=== PATIENT | male | born 1945 | race Caucasian/White ===

== ENCOUNTER 2018-05-16 05:44 | Inpatient (IN) ==
[2018-05-16] MEDS ORDERED: Zolpidem Tartrate 5 MG Tablet PO PRN (06:39)
[2018-05-16] MEDS ORDERED: Post-op Orders (for Pharmacy) OTHER STA (06:39)
[2018-05-16] MEDS ORDERED: Dexamethasone Inj 20 MG/5 ML Vial IV.PUSH PRN (06:47)
[2018-05-16] MEDS ORDERED: TRANEXAMIC ACID IV.SIG SCH (07:00)
[2018-05-16] MEDS ORDERED: SODIUM CHLOR 0.9% IV.SIG SCH (07:00)
[2018-05-16] MEDS ORDERED: Vancomycin Inj 1,000 MG in Sodium Chlor 0.9% Inj 250 ML IV.SIG SCH (07:00)
[2018-05-16] MEDS ORDERED: Chlorhexidine 4% Topical 120 APPLIC/120 ML Bottle TOPICAL SCH (07:00)
[2018-05-16] MEDS ORDERED: Sodium Chlor 0.9% Inj 73.07 ML, Ropivacaine 0.5% PF Inj 24.63 ML, Ketorolac Inj 30 MG, ... P-ARTICULR SCH ×5 (07:00)
[2018-05-16] MEDS ORDERED: Chlorhexidine Gluconate 2% 1 Pack (2 Cloths) TOPICAL ONE ×2 (07:01→07:12)
[2018-05-16] MEDS ORDERED: Metoprolol Tartrate 25 MG Tablet PO ONE (07:12)
[2018-05-16] MEDS ORDERED: Bupivacaine Liposomal PF 1.3% Inj 20 ML Vial ONE (07:52)
[2018-05-16] MEDS ORDERED: Sodium Chlor 0.9% Inj 500 ML IV.SIG SCH ×2 (08:00)
[2018-05-16] MEDS ORDERED: HYDROmorphone PF Inj 2 MG/ML Vial IV.PUSH PRN (08:15)
[2018-05-16] MEDS: ceFAZolin 2 GM Premix Inj 2 GM/50 ML PIGGYBACK IV.SIG SCH ×3 (08:31→21:20)
[2018-05-16] MEDS ORDERED: Lidocaine PF 1% Inj 5 ML Syringe OTHER ONE (08:45)
[2018-05-16] MEDS ORDERED: Glycopyrrolate Inj 1 MG/5 ML Syringe IV.PUSH ONE (08:45)
[2018-05-16] MEDS ORDERED: Phenylephrine/NS 1000 MCG/10ML Syringe IV.PUSH ONE (08:45)
[2018-05-16] MEDS ORDERED: Neostigmine Inj 5 MG/5 ML Syringe IV.PUSH ONE (08:45)
[2018-05-16] MEDS ORDERED: Tranexamic Acid Inj 3,000 MG in Sodium Chlor 0.9% Inj 100 ML P-ARTICULR SCH (09:50)
[2018-05-16] MEDS ORDERED: *morphine SULFATE 10 MG/ML PERIprocedure ONLY ONE (11:26)
[2018-05-16] MEDS ORDERED: *Meperidine Inj 25 MG/ML Vial PERIprocedural Use ONLY ONE (11:39)
[2018-05-16] MEDS ORDERED: Morphine Inj 4 MG/ML Vial ONE (11:45)
[2018-05-16] MEDS ORDERED: fentaNYL Citrate Inj 100 MCG/2 ML Ampul ONE (11:45)
--- NOTE | 2018-05-16 12:19 | XR ---
EXAM DATE: 05/16/2018 12:17 PM EDT AGE/SEX: 72 years / Male INDICATIONS: Post op left knee. CLINICAL DATA: This is the patient's initial encounter. Patient reports that signs and symptoms have been present for 1 day and indicates a pain score of Nonresponsive. MEDICAL/SURGICAL HISTORY: None. None. COMPARISON: No prior exams available for comparison. FINDINGS: The patient's had a total knee arthroplasty. There is no complications. There is excellent alignment. CONCLUSION: Status post total knee arthroplasty without complication Electronically signed by: Jeb Torres MD 05/16/2018 12:18 PM EDT
[2018-05-16] MEDS: Gabapentin 300 MG Capsule PO SCH ×2 (14:18→21:22)
[2018-05-16] MEDS: Senna/Docusate Sodium 8.6/50 MG Tablet PO SCH ×2 (14:21→21:21)
[2018-05-16] MEDS: Multivitamin/Minerals Therapeutic Tablet PO SCH ×2 (14:21→21:22)
--- NOTE | 2018-05-16 14:22 | MP ---
cc: Jose Rafael Maldonado MD DATE OF OPERATION: 05/16/2018 DATE OF PROCEDURE: 05/16/2018. PREOPERATIVE DIAGNOSIS: Left knee osteoarthritis. POSTOPERATIVE DIAGNOSIS: Left knee osteoarthritis. PROCEDURE PERFORMED: Left total knee arthroplasty. SURGEON: Jose Rafael Maldonado MD PHOTONIC LABORATORY TECHNICIAN: PATRICIA Mascorro. ANESTHESIA: General with femoral nerve block. ESTIMATED BLOOD LOSS: 100 mL TOURNIQUET TIME: 37 minutes at 250 mmHg. COMPLICATIONS: None. IMPLANTS USED: DePuy Attune size 8 posterior stabilized femoral component, size 8 rotating platform tibial baseplate, size 6 mm polyethylene tibial insert and size 38 patella. INDICATIONS: This patient is a 72-year-old male with history of severe osteoarthritis involving the left knee. He has severe disabling pain with standing, walking, ambulation. Weightbearing activities and severe pain at rest. The pain does interfere with activities of daily living. He has failed greater than 3 months of nonoperative conservative treatment to include medication therapy, injections, ambulatory assist aids, home exercise program, activity modification, weight loss attempts. X-rays of the left knee reveal severe osteoarthritis with joint space narrowing, subchondral sclerosis, subchondral cyst, osteophyte formation with deformity and subluxation. The patient was counseled as to the risks, benefits and alternatives to a total knee arthroplasty. The risks were discussed included, but not limited to anesthesia, bleeding, infection, damage to nerves and blood vessels, pain, stiffness, fracture dislocations, failure of components, blood clots, pulmonary embolism, and even . The patient's pain is severe. He favored the benefits over the risks and he did wish to proceed with surgery. PROCEDURE IN DETAIL: Written consent was obtained. The patient was identified by name, taken to the operating room and placed supine and general anesthesia was administered, as well as 3 grams of IV Ancef and 1 gram of IV vancomycin. A well-padded tourniquet was placed on the left thigh. The left lower extremity prepped and draped using isopropyl alcohol, Hibiclens solution and ChloraPrep solution. After a timeout was performed, Esmarch bandage was used to exsanguinate the left lower extremity with tourniquet inflated to 250 mmHg. A longitudinal incision over the anterior aspect of the left knee. A medial parapatellar arthrotomy was performed. The patella was everted. A patellar resection guide was used to resect 9 mm of the patella; a size 38 mm guide was placed. Three drill holes were placed and a 38 mm trial fit well. Attention was turned to the femur where a intramedullary guide was placed and the distal femoral guide was set to remove 10 mm of distal femur, 5 degrees off the anatomic valgus axis alignment An oscillating saw was used to perform the distal femoral cut. Attention was turned to the tibia. An extramedullary tibial guide was set to remove 6 mm of the lowest portion of the medial tibial plateau. The tibial guide was pinned in place. The tibial cut was performed. A 5 mm spacer block showed full extension. Attention was turned back to the femur. The AP sizing block measured a size 8. The anterior reference 3-degree external rotation guide was used to pin size [address]. Anterior, posterior chamfer cuts were performed. Size a PCL box was pinned in place and the PCL was approximated with an oscillating saw. The medial and lateral meniscus remnants were removed, as well as bone and soft tissue debris from the posterior portion of the knee. A size 8 tibial base was pinned in place. The tibia was drilled and punched. The trial components were evaluated and the final components were implanted. With the current components, the leg achieved full extension to 0 degrees and flexion to 140. No evidence of tibial liftoff. Varus valgus balance were appropriate and symmetric. The patella was noted to track centrally. The knee was thoroughly irrigated with sterile saline, pulse lavage antibiotic impregnated solution. Bovie cautery was used for hemostasis. The arthrotomy incision was closed with #1 Vicryl suture, subcuticular was closed with 2-0 Vicryl suture. Skin was closed with Dermabond. Sterile dressing was applied. He tolerated the procedure well with no intraoperative complications noted. Hill Burnett, Physician Physician Representative-Certified was present for the entire procedure to include patient positioning and the procedure itself. The medical necessity of the physician contact center assistant was indicated in this case due to the complexity of the procedure. He assisted with appropriate manipulation of the leg and also retraction muscles, tendon, bone and neurovascular structures. He assisted in preparation of bone and also implantation of the prosthetic replacement. MD RAMSEY Mcgraw/heber , 10:41 AM , 10:50 AM
[2018-05-16] MEDS ORDERED: Dextrose 50% in Water 50 ML Vial IV.PUSH PRN (15:26)
--- NOTE | 2018-05-16 15:39 | P.CONIM ---
History of Present Illness Service: [facility] Consult date: 05/16/18 Requesting Physician: Jose Rafael Maldonado Reason for Consult: MEDICAL MANAGEMENT Primary Care Provider: PROVIDER NON STAFF Family Provider: PROVIDER NON STAFF Chief Complaint: MEDICAL MANAGEMENT SP LEFT TKA History of Present Illness: Patient is a 72-year-old gentleman who underwent a left total knee arthroplasty due to severe osteoarthritis. Patient underwent surgery today with Dr. Maldonado tolerated the procedure well. We have now been asked to consult regarding medical management regarding his diabetes and hypertension and hyperlipidemia and history of CLL, and COPD, and neuropathy, and prostate cancer status post radiation and history of partial lobectomy. We will follow him throughout the admission for any other issues that may arise will sugars before meals and at bedtime with sliding scale coverage a.m. labs and monitor him throughout the admission. Family history positive for hypertension Review of Systems All other systems reviewed negative except as stated in HPI [facility] - History History Provided By: Patient - Medical History Medical History: Medical History (Last Reviewed 05/16/18 @ 15:31 by Madhu Peralta DO) Arthritis Bilateral knee pain COPD (chronic obstructive pulmonary disease) Chronic leukemia in remission Diabetes H/O pleural empyema High cholesterol Hypertension Lymphoma involving lung Neuropathy Prostate cancer - Surgical History Surgical History: Surgical History (Last Reviewed 05/16/18 @ 15:31 by Madhu Peralta DO) History of lobectomy of lung History of removal of Port-a-Cath Hx of tonsillectomy - Family History Family History: Family History (Last Reviewed 05/16/18 @ 15:31 by Madhu Peralta DO) Other Family history of hypertension - Social History I have reviewed the patient's Social History: Yes - Tobacco History Second Hand Smoke Exposure: No Smoking Status: Never smoker - Alcohol History How Often Do You Have a Drink Containing Alcohol: Monthly or less - Substance Use History Substance History: No History of Abuse - Travel History History of Recent Travel: No Recent Travel in the [place] Within the Last 8 Weeks: No Recent Travel Out of the Country Within the Last 8 Weeks: No Medications and Allergies Active Medications: Active Medications Hydrocodone Bitart/Acetaminophen ([place] 7.5/325) 1 tab PO Q4H PRN PRN Reason: PAIN LESS THAN 5 ON SCALE Hydrocodone Bitart/Acetaminophen ([place] 7.5/325) 2 tab PO Q6H PRN PRN Reason: PAIN SCALE 5 TO 10 Last Admin: 05/16/18 14:34 Dose: 2 tab Al Hydroxide/Mg Hydroxide (Milk Of Deonna Liq) 30 ml PO BID PRN PRN Reason: Mild Constipation Aspirin (Aspirin Chew) 81 mg PO BID [facility] Last Admin: 05/16/18 14:18 Dose: Not Given Chlorhexidine Gluconate (Hibiclens 4% Topical) 1 applicatio TOPICAL ONCE [facility] Stop: 05/20/18 06:59 Last Admin: 05/16/18 06:30 Dose: 1 applicatio Sodium Chloride 73.07 ml/Ropivacaine 24.63 ml/Ketorolac Tromethamine 30 mg/ Epinephrine HCl 0.5 mg/Clonidine HCl 80 mcg 0 ml P-ARTICULR ONCE [facility] Stop: 05/16/18 16:00 Last Admin: 05/16/18 09:50 Dose: 130 bag Dexamethasone Sodium Phosphate (Decadron Inj) 10 mg IV.PUSH ASSISTANT STORE MANAGER OPERATIONS PRN PRN Reason: PRE-OP IN OR HOLDING Stop: 05/16/18 22:00 Last Admin: 05/16/18 07:31 Dose: 10 mg Dextrose (D50w Vial) 50 ml IV.PUSH UNSCH PRN PRN Reason: PER HYPOGLYCEMIA PROTOCOL Diphenhydramine HCl (Benadryl) 25 mg PO Q6H PRN PRN Reason: ITCHING Gabapentin (Neurontin) 300 mg PO BID [facility] Last Admin: 05/16/18 14:18 Dose: Not Given Glucagon (Glucagon Inj) 1 mg OTHER PRN PRN PRN Reason: for Hypoglycemia Protocol Hydromorphone HCl (Dilaudid Pf Inj) 1 mg IV.PUSH Q3H PRN PRN Reason: BREAKTHROUGH PAIN Cefazolin Sodium/Dextrose (Ancef 2 Gm Premix Inj) 2 gm in 50 mls @ 100 mls/hr IV.SIG Q6H [facility] Stop: 05/17/18 02:29 Lactated Ringer's (Lr 1000 Ml Inj) 1,000 mls @ 80 mls/hr IV.CONT .[id number] [facility] Last Admin: 05/16/18 11:15 Dose: 80 mls/hr Vancomycin HCl 1,000 mg/ (Sodium Chloride) 250 mls @ 250 mls/hr IV.SIG ASSISTANT STORE MANAGER OPERATIONS [facility] Stop: 05/19/18 06:49 Last Infusion: 05/16/18 09:50 Dose: Infused Cefazolin Sodium/Dextrose (Ancef 2 Gm Premix Inj) 2 gm in 50 mls @ 100 mls/hr IV.SIG ASSISTANT STORE MANAGER OPERATIONS [facility] Stop: 05/20/18 06:59 Last Infusion: 05/16/18 09:52 Dose: Infused Tranexamic Acid 3,000 mg/ (Sodium Chloride) 130 mls @ 200 mls/hr P-ARTICULR ONCE [facility] Stop: 05/16/18 16:00 Last Infusion: 05/16/18 09:51 Dose: Infused Lactated Ringer's (Lr 1000 Ml Inj) 1,000 mls @ 30 mls/hr IV.SIG .Q24H [facility] Stop: 05/17/18 07:14 Last Infusion: 05/16/18 10:33 Dose: Infused Sodium Chloride (Ns Inj) 500 mls @ 30 mls/hr IV.SIG .Q10H [facility] Lactated Ringer's (Lr 1000 Ml Inj) 1,000 mls @ 30 mls/hr IV.SIG .Q24H [facility] Stop: 05/17/18 07:14 Last Admin: 05/16/18 08:02 Dose: Not Given Sodium Chloride (Ns Inj) 500 mls @ 30 mls/hr IV.SIG .Q10H [facility] Insulin Aspart (Novolog Insulin Correctional Sugar Inj) 0 unit SQ ACHS [facility]; Protocol Metformin HCl (Glucophage) 500 mg PO BID [facility] Last Admin: 05/16/18 14:18 Dose: Not Given Miscellaneous Information (Misc Nursing Information) 1 each OTHER UNSCH PRN PRN Reason: SEE LABEL COMMENTS Stop: 05/17/18 11:03 Multivitamins/Minerals (Theragran-M) 1 tab PO BID [facility] Stop: 07/15/18 08:59 Last Admin: 05/16/18 14:21 Dose: Not Given Ondansetron HCl (Zofran Inj) 4 mg IV.PUSH Q6H PRN PRN Reason: NAUSEA OR VOMITING Povidone Iodine (Betadine 7.5% Scrub) 1 applicatio TOPICAL ONCE [facility] Stop: 05/20/18 06:59 Pravastatin Sodium (Pravachol) 80 mg PO QPM [facility] Propranolol HCl (Inderal) 20 mg PO BID [facility] Last Admin: 05/16/18 14:18 Dose: Not Given Senna/Docusate Sodium (Briana-Colace) 1 tab PO BID [facility] Last Admin: 05/16/18 14:21 Dose: Not Given Sennosides (Senokot) 17.2 mg PO BID PRN PRN Reason: Moderate Constipation Sodium Chloride (Ns Flush) 2 ml IV.FLUSH PRN PRN PRN Reason: FLUSH AFTER USING IV ACCESS Sodium Chloride (Ns Flush) 2 ml IV.FLUSH BID [facility] Last Admin: 05/16/18 14:21 Dose: Not Given Trazodone HCl (Desyrel) 50 mg PO HS [facility] Zolpidem Tartrate (Ambien) 5 mg PO HS PRN PRN Reason: INSOMNIA Allergies Allergy/AdvReac Type Severity Reaction Status Date / Time penicillin G Allergy Unknown UNKNOWN Verified 05/16/18 07:21 REACTION- A CHILD Home Medications Medication Instructions Recorded Confirmed Type albuterol sulfate 2 puff INHALATION Q4-6H PRN 05/02/18 05/16/18 History albuterol sulfate 2.5 mg INHALATION QID PRN 05/02/18 05/16/18 History aspirin 81 mg PO DAILY 05/02/18 05/16/18 History gabapentin 300 mg PO BID 05/02/18 05/16/18 History meloxicam 15 mg PO DAILY 05/02/18 05/16/18 History metformin 500 mg PO BID 05/02/18 05/16/18 History propranolol 20 mg PO BID 05/02/18 05/16/18 History simvastatin 40 mg PO QPM 05/02/18 05/16/18 History trazodone 50 mg PO HS 05/02/18 05/16/18 History Exam Vital signs: Vital Signs 05/16/18 07:24 05/16/18 07:51 05/16/18 11:06 Temperature 98.4 F 97.4 F L Pulse Rate 71 65 67 Respiratory Rate 20 12 Blood Pressure 126/64 143/67 H Pulse Oximetry 96 95 94 L 05/16/18 11:15 05/16/18 11:28 05/16/18 11:30 Temperature Pulse Rate 64 59 L Respiratory Rate 12 18 12 Blood Pressure 134/63 142/62 H Pulse Oximetry 95 94 L 05/16/18 11:45 05/16/18 12:00 05/16/18 12:15 Temperature Pulse Rate 29 L 58 L 57 L Respiratory Rate 12 12 12 Blood Pressure 134/63 101/60 116/58 L Pulse Oximetry 95 93 L 94 L 05/16/18 12:30 05/16/18 12:45 05/16/18 13:15 Temperature 97.6 F 97.4 F L Pulse Rate 57 L 58 L 58 L Respiratory Rate 08 03 18 Blood Pressure 112/55 L 109/55 L 128/58 L Pulse Oximetry 95 97 98 Intake & Output 05/15/18 05/16/18 05/16/18 18:59 06:59 18:59 Intake Total 1798.5 / 1798.5 Output Total 200 / 200 Balance 1598.5 / 1598.5 Weight 123.1 kg Intake: IV 1548.5 / 1548.5 LR 1000 mL Inj 1,000 ML @ 30 1000 / 1000 mls/hr IV.SIG .Q24H [facility] Rx#: [id number] Cyklokapron Inj 1,850 MG In NS 118.5 / 118.5 Inj 100 ML @ 200 mls/hr IV.SIG ONCE [facility] Rx#:[id number] Vancomycin Inj 1,000 MG In NS 250 / 250 Inj 250 ML @ 250 mls/hr IV.SIG ASSISTANT STORE MANAGER OPERATIONS [facility] Rx#:[id number] Ancef 2 GM Premix Inj 2 gm In 50 / 50 50 ml @ 100 mls/hr IV.SIG ASSISTANT STORE MANAGER OPERATIONS [facility] Rx#:[id number] Cyklokapron Inj 3,000 MG In NS 130 / 130 Inj 100 ML @ 200 mls/hr P- ARTICULR ONCE [facility] Rx#:[id number] Anesthesia Amount 250 / 250 Output: Estimated Blood Loss 200 / 200 Other: Weight On Admission 123.1 kg Narrative: GENERAL: Awake alert and oriented 3 talkative and cooperative SKIN: Warm and dry. HEAD: Atraumatic. Normocephalic. EYES: Pupils equal and round. No scleral icterus. No injection or drainage. EOMI ENT: No nasal bleeding or discharge. Mucous membranes pink and moist. Tongue is midline NECK: Trachea midline. No JVD. Supple CARDIOVASCULAR: Regular rate and rhythm. S1-S2 no S3 or S4 RESPIRATORY: No accessory muscle use. Clear to auscultation. Breath sounds equal bilaterally. GASTROINTESTINAL: Abdomen soft, non-tender, nondistended. Hepatic and splenic margins not palpable. MUSCULOSKELETAL: Extremities without clubbing, cyanosis, or edema. No obvious deformities. Left knee is dressed NEUROLOGICAL: Awake and alert. No obvious cranial nerve deficits. Motor grossly within normal limits. Five out of 5 muscle strength in the arms and legs. Normal speech. Left knee is dressed PSYCHIATRIC: Appropriate mood and affect; insight and judgment normal. Results - Labs Labs: Laboratory Results - last 24 hr 05/16/18 05/16/18 07:20 11:29 POC Glucose 162 H Blood Type O Positive Blood Type Recheck Required Antibody Screen Negative - Imaging Impressions Knee X-Ray 05/16/18 06:38 CONCLUSION: Status post total knee arthroplasty without complication Assessment and Plan - Plan Status post left total knee arthroplasty due to severe osteoarthritis History of COPD neb treatments as needed Diabetes mellitus continue on sliding scale coverage and Accu-Cheks before meals and at bedtime as well as resume metformin Hypertension resume home medications--continue propranolol Hyperlipidemia resume home medications--continue simvastatin History lymphoma involving the lung in remission History of neuropathy probably secondary to chemo 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
[2018-05-16] MEDS: Insulin NovoLOG Aspart Correctional Sugar Inj SQ SCH ×2 (18:46→21:00)
[2018-05-16] MEDS ORDERED: traZODone 50 MG Tablet PO SCH (21:00)
[2018-05-16] MEDS: Famotidine 20 MG Tablet PO SCH (21:22)
[2018-05-17] MEDS: ceFAZolin 2 GM Premix Inj 2 GM/50 ML PIGGYBACK IV.SIG SCH ×2 (03:10→03:52)
[2018-05-17 05:24] LABS: Baso % (Auto) 0.2 % (0.0-2.0); Eos % (Auto) 0.2 % (0.0-4.0); Hemoglobin 11.5 gm/dL (13.0-17.0); Lymph # (Auto) 0.9 th/mm3 (1.0-4.8); Lymph % (Auto) 7.9 % (9.0-44.0); Mean Corpuscular HGB Conc 33.8 % (32.0-36.0); Mean Corpuscular Hemoglobin 29.5 pg (27.0-34.0); Mean Corpuscular Volume 87.4 fL (80.0-100.0); Mean Platelet Volume 7.8 fL (7.0-11.0); Mono # (Auto) 1.2 th/mm3 (0.0-0.9); Mono % (Auto) 9.7 % (0.0-8.0); Neut # (Auto) 9.8 th/mm3 (1.8-7.7); Platelet Count 179 th/mm3 (150-450); Red Blood Count 3.89 mil/mm3 (4.50-5.90); Red Cell Distribution Width 15.2 % (11.6-17.2)
[2018-05-17 05:46] LABS: Albumin 3.1 g/dL (3.4-5.0); Anion Gap 9 meq/L (5-15); Aspartate Aminotransferase 20 U/L (15-37); Blood Urea Nitrogen 19 mg/dL (7-18); Calcium 8.4 mg/dL (8.5-10.1); Carbon Dioxide 29.4 meq/L (21.0-32.0); Chloride 101 meq/L (98-107); Glomerular Filtration Rate 80 mL/min (>89); Glucose,Random 162 mg/dL (74-106); Magnesium 1.9 mg/dL (1.5-2.5); Potassium 5.1 meq/L (3.5-5.1); Sodium 139 meq/L (136-145)
[2018-05-17 05:55] LABS: Alanine Aminotransferase 35 U/L (12-78); Alkaline Phosphatase 66 U/L (45-117); Free T4 (Free Thyroxine) 1.13 ng/dL (0.76-1.46); Phosphorus 3.9 mg/dL (2.5-4.9); Thyroid Stimulating Hormone 0.717 uIU/mL (0.358-3.740); Total Protein 6.3 g/dL (6.4-8.2)
[2018-05-17] MEDS: Insulin NovoLOG Aspart Correctional Sugar Inj SQ SCH ×3 (08:01→18:40)
[2018-05-17] MEDS: Famotidine 20 MG Tablet PO SCH (08:02)
[2018-05-17] MEDS: Multivitamin/Minerals Therapeutic Tablet PO SCH (08:02)
[2018-05-17] MEDS: Senna/Docusate Sodium 8.6/50 MG Tablet PO SCH (08:02)
[2018-05-17] MEDS: Gabapentin 300 MG Capsule PO SCH (08:02)
--- NOTE | 2018-05-17 08:17 | P.PNOP ---
Subjective Interval history: doing well. pain controlled. Physical Exam Vital signs: Vital Signs 05/16/18 11:06 05/16/18 11:15 05/16/18 11:28 Temperature 97.4 F L Pulse Rate 67 64 Respiratory Rate 12 12 18 Blood Pressure 143/67 H 134/63 Pulse Oximetry 94 L 95 05/16/18 11:30 05/16/18 11:45 05/16/18 12:00 Temperature Pulse Rate 59 L 29 L 58 L Respiratory Rate 12 12 12 Blood Pressure 142/62 H 134/63 101/60 Pulse Oximetry 94 L 95 93 L 05/16/18 12:15 05/16/18 12:30 05/16/18 12:45 Temperature 97.6 F Pulse Rate 57 L 57 L 58 L Respiratory Rate 12 12 12 Blood Pressure 116/58 L 112/55 L 109/55 L Pulse Oximetry 94 L 95 97 05/16/18 13:15 05/16/18 15:41 05/16/18 16:00 Temperature 97.4 F L 97 F L Pulse Rate 58 L 60 Respiratory Rate 18 18 Blood Pressure 128/58 L 103/61 Pulse Oximetry 98 98 95 05/16/18 20:00 05/17/18 00:00 05/17/18 04:00 Temperature 97.4 F L 97.4 F L 97.3 F L Pulse Rate 64 60 58 L Respiratory Rate 18 18 18 Blood Pressure 149/64 H 114/56 L 114/55 L Pulse Oximetry 97 95 96 Intake & Output 05/16/18 05/17/18 05/17/18 18:59 06:59 18:59 Intake Total 2638.5 / 2638.5 150 / 150 Output Total 200 / 200 Balance 2438.5 / 2438.5 150 / 150 Weight 123.1 kg Intake: IV 1548.5 / 1548.5 100 / 100 LR 1000 mL Inj 1,000 ML @ 30 1000 / 1000 mls/hr IV.SIG .Q24H [facility] Rx#: [id number] Cyklokapron Inj 1,850 MG In NS 118.5 / 118.5 Inj 100 ML @ 200 mls/hr IV.SIG ONCE [facility] Rx#:[id number] Vancomycin Inj 1,000 MG In NS 250 / 250 Inj 250 ML @ 250 mls/hr IV.SIG BRANCH ACCOUNT EXECUTIVE [facility] Rx#:[id number] Ancef 2 GM Premix Inj 2 gm In 50 / 50 100 / 100 50 ml @ 100 mls/hr IV.SIG Q6H [facility] Rx#:[id number] Cyklokapron Inj 3,000 MG In NS 130 / 130 Inj 100 ML @ 200 mls/hr P- ARTICULR ONCE [facility] Rx#:[id number] Oral 840 / 840 50 / 50 Anesthesia Amount 250 / 250 Output: Estimated Blood Loss 200 / 200 Other: # Voids 1 200 Date of Last Bowel Movement 05/15/18 # Bowel Movements 0 Narrative: sitting in chair, nad dressing c/d/i neg homans nvi Results - Labs CBC & Chem 7: 05/17/18 05:08 05/17/18 05:08 Laboratory Results - last 24 hr 05/16/18 05/16/18 05/16/18 07:20 11:29 16:45 WBC RBC Hgb Hct MCV MCH MCHC RDW Plt Count MPV Neut % (Auto) Lymph % (Auto) [place] % (Auto) Eos % (Auto) Baso % (Auto) Neut # (Auto) Lymph # (Auto) [place] # (Auto) Eos # (Auto) Baso # (Auto) WBC Differential Differential Comment Sodium Potassium Chloride Carbon Dioxide Anion Gap BUN Creatinine Estimated GFR POC Glucose 162 H 267 H Random Glucose Calcium Phosphorus Magnesium Total Bilirubin AST ALT Alkaline Phosphatase Total Protein Albumin TSH Free T4 Antibody Screen Negative 05/16/18 05/17/18 05/17/18 23:20 05:08 05:08 WBC 12.0 H RBC 3.89 L Hgb 11.5 L Hct 34.0 L MCV 87.4 MCH 29.5 MCHC 33.8 RDW 15.2 Plt Count 179 MPV 7.8 Neut % (Auto) 82.0 H Lymph % (Auto) 7.9 L [place] % (Auto) 9.7 H Eos % (Auto) 0.2 Baso % (Auto) 0.2 Neut # (Auto) 9.8 H Lymph # (Auto) 0.9 L [place] # (Auto) 1.2 H Eos # (Auto) 0.0 Baso # (Auto) 0.0 WBC Differential . Differential Comment Auto diff final Sodium 139 Potassium 5.1 Chloride 101 Carbon Dioxide 29.4 Anion Gap 9 BUN 19 H Creatinine 0.92 Estimated GFR 80 L POC Glucose 182 H Random Glucose 162 H Calcium 8.4 L Phosphorus 3.9 Magnesium 1.9 Total Bilirubin 0.3 AST 20 ALT 35 Alkaline Phosphatase 66 Total Protein 6.3 L Albumin 3.1 L TSH 0.717 Free T4 1.13 Antibody Screen 05/17/18 07:48 WBC RBC Hgb Hct MCV MCH MCHC RDW Plt Count MPV Neut % (Auto) Lymph % (Auto) [place] % (Auto) Eos % (Auto) Baso % (Auto) Neut # (Auto) Lymph # (Auto) [place] # (Auto) Eos # (Auto) Baso # (Auto) WBC Differential Differential Comment Sodium Potassium Chloride Carbon Dioxide Anion Gap BUN Creatinine Estimated GFR POC Glucose 160 H Random Glucose Calcium Phosphorus Magnesium Total Bilirubin AST ALT Alkaline Phosphatase Total Protein Albumin TSH Free T4 Antibody Screen - Imaging Impressions Knee X-Ray 05/16/18 06:38 CONCLUSION: Status post total knee arthroplasty without complication Assessment and Plan - Ortho Post Op Day # 1 - Assessment and Plan s/p L TKA wbat ok to maintain dressing unless saturated asa 81 d/c planning to home with c and pt - cleared today if does well in PT f/up dr. mcelroy 2 weeks
--- NOTE | 2018-05-17 08:18 | P.DCO ---
- Physical Therapy Physical Therapy: Gait training, Safety evaluation Knee: Total knee, Protocol: Left, Full weight bearing Left Lower Extremity Weight Bearing: Weight bearing as tolerated - Nursing RN: 3 days/week x 2 weeks Nursing: Dressing changes Dressing changes: Do not change dressing - Certification Need for Home Health services: I have seen patient Bryant Zhu on 05/17/18. My clinical findings support the need for the requested home health care services because: Need for Home Health Services: Limited ability to care for self, High risk of falls Homebound Certification: I certify that my clinical findings support that this patient is homebound because: Homebound Certification: Post-op weakness, Unsteady gait/balance
--- NOTE | 2018-05-17 12:46 | P.PNIM ---
Subjective Interval history: Patient is a 72-year-old gentleman who underwent a left total knee arthroplasty due to severe osteoarthritis. Patient underwent surgery today with Dr. Maldonado tolerated the procedure well. We have now been asked to consult regarding medical management regarding his diabetes and hypertension and hyperlipidemia and history of CLL, and COPD, and neuropathy, and prostate cancer status post radiation and history of partial lobectomy. We will follow him throughout the admission for any other issues that may arise will sugars before meals and at bedtime with sliding scale coverage a.m. labs and monitor him throughout the admission. Family history positive for hypertension 9-25 DOING WELL WANTS TO GO HOME WITH [facility] LATER TODAY DW RN AND PT AND CM NO NEW ISSUES OTHER THAN PAIN IN LEFT KNEE Physical Exam Vital signs: Vital Signs 05/16/18 12:45 05/16/18 13:15 05/16/18 15:41 Temperature 97.6 F 97.4 F L Pulse Rate 58 L 58 L Respiratory Rate 12 18 Blood Pressure 109/55 L 128/58 L Pulse Oximetry 97 98 98 05/16/18 16:00 05/16/18 20:00 05/17/18 00:00 Temperature 97 F L 97.4 F L 97.4 F L Pulse Rate 60 64 60 Respiratory Rate 18 18 18 Blood Pressure 103/61 149/64 H 114/56 L Pulse Oximetry 95 97 95 05/17/18 04:00 05/17/18 08:00 Temperature 97.3 F L 97.7 F Pulse Rate 58 L 66 Respiratory Rate 18 18 Blood Pressure 114/55 L 138/68 Pulse Oximetry 96 99 Intake & Output 05/16/18 05/17/18 05/17/18 18:59 06:59 18:59 Intake Total 2638.5 / 2638.5 1200 / 1200 Output Total 200 / 200 750 / 750 Balance 2438.5 / 2438.5 1200 / 1200 -750 / -750 Weight 123.1 kg Intake: IV 1548.5 / 1548.5 1150 / 1150 LR 1000 mL Inj 1,000 ML @ 80 1000 / 1000 mls/hr IV.CONT .[id number] HARRY Rx# :[id number] LR 1000 mL Inj 1,000 ML @ 30 1000 / 1000 mls/hr IV.SIG .Q24H HARRY Rx#: [id number] Cyklokapron Inj 1,850 MG In NS 118.5 / 118.5 Inj 100 ML @ 200 mls/hr IV.SIG ONCE HARRY Rx#:[id number] Vancomycin Inj 1,000 MG In NS 250 / 250 Inj 250 ML @ 250 mls/hr IV.SIG KRAFT DIGESTER OPERATOR HARRY Rx#:[id number] Ancef 2 GM Premix Inj 2 gm In 50 / 50 150 / 150 50 ml @ 100 mls/hr IV.SIG Q6H HARRY Rx#:[id number] Cyklokapron Inj 3,000 MG In NS 130 / 130 Inj 100 ML @ 200 mls/hr P- ARTICULR ONCE HARRY Rx#:[id number] Oral 840 / 840 50 / 50 Anesthesia Amount 250 / 250 Output: Urine 750 / 750 Estimated Blood Loss 200 / 200 Other: # Voids 1 200 1 Date of Last Bowel Movement 05/15/18 # Bowel Movements 0 Narrative: GENERAL: Awake alert and oriented 3 talkative and cooperative SKIN: Warm and dry. HEAD: Atraumatic. Normocephalic. EYES: Pupils equal and round. No scleral icterus. No injection or drainage. EOMI ENT: No nasal bleeding or discharge. Mucous membranes pink and moist. Tongue is midline NECK: Trachea midline. No JVD. Supple CARDIOVASCULAR: Regular rate and rhythm. S1-S2 no S3 or S4 RESPIRATORY: No accessory muscle use. Clear to auscultation. Breath sounds equal bilaterally. GASTROINTESTINAL: Abdomen soft, non-tender, nondistended. Hepatic and splenic margins not palpable. MUSCULOSKELETAL: Extremities without clubbing, cyanosis, or edema. No obvious deformities. Left knee is dressed NEUROLOGICAL: Awake and alert. No obvious cranial nerve deficits. Motor grossly within normal limits. Five out of 5 muscle strength in the arms and legs. Normal speech. Left knee is dressed PSYCHIATRIC: Appropriate mood and affect; insight and judgment normal. Results - Labs CBC & Chem 7: 05/17/18 05:08 05/17/18 05:08 Laboratory Results - last 24 hr 05/16/18 05/16/18 05/17/18 16:45 23:20 05:08 WBC 12.0 H RBC 3.89 L Hgb 11.5 L Hct 34.0 L MCV 87.4 MCH 29.5 MCHC 33.8 RDW 15.2 Plt Count 179 MPV 7.8 Neut % (Auto) 82.0 H Lymph % (Auto) 7.9 L [place] % (Auto) 9.7 H Eos % (Auto) 0.2 Baso % (Auto) 0.2 Neut # (Auto) 9.8 H Lymph # (Auto) 0.9 L [place] # (Auto) 1.2 H Eos # (Auto) 0.0 Baso # (Auto) 0.0 WBC Differential . Differential Comment Auto diff final Sodium Potassium Chloride Carbon Dioxide Anion Gap BUN Creatinine Estimated GFR POC Glucose 267 H 182 H Random Glucose Calcium Phosphorus Magnesium Total Bilirubin AST ALT Alkaline Phosphatase Total Protein Albumin TSH Free T4 05/17/18 05/17/18 05:08 07:48 WBC RBC Hgb Hct MCV MCH MCHC RDW Plt Count MPV Neut % (Auto) Lymph % (Auto) [place] % (Auto) Eos % (Auto) Baso % (Auto) Neut # (Auto) Lymph # (Auto) [place] # (Auto) Eos # (Auto) Baso # (Auto) WBC Differential Differential Comment Sodium 139 Potassium 5.1 Chloride 101 Carbon Dioxide 29.4 Anion Gap 9 BUN 19 H Creatinine 0.92 Estimated GFR 80 L POC Glucose 160 H Random Glucose 162 H Calcium 8.4 L Phosphorus 3.9 Magnesium 1.9 Total Bilirubin 0.3 AST 20 ALT 35 Alkaline Phosphatase 66 Total Protein 6.3 L Albumin 3.1 L TSH 0.717 Free T4 1.13 - Imaging Knee X-Ray 05/16/18 06:38 CONCLUSION: Status post total knee arthroplasty without complication - Procedures DATE OF OPERATION: 05/16/2018 DATE OF PROCEDURE: 05/16/2018. PREOPERATIVE DIAGNOSIS: Left knee osteoarthritis. POSTOPERATIVE DIAGNOSIS: Left knee osteoarthritis. PROCEDURE PERFORMED: Left total knee arthroplasty. SURGEON: Jose Rafael Maldonado MD GLOVE PRINTER: PATRICIA Mascorro. ANESTHESIA: General with femoral nerve block. ESTIMATED BLOOD LOSS: 100 mL TOURNIQUET TIME: 37 minutes at 250 mmHg. COMPLICATIONS: None. IMPLANTS USED: [employer] size 8 posterior stabilized femoral component, size 8 rotating platform tibial baseplate, size 6 mm polyethylene tibial insert and size 38 patella. INDICATIONS: This patient is a 72-year-old male with history of severe osteoarthritis involving the left knee. He has severe disabling pain with standing, walking, ambulation. Weightbearing activities and severe pain at rest. The pain does interfere with activities of daily living. He has failed greater than 3 months of nonoperative conservative treatment to include medication therapy, injections, ambulatory assist aids, home exercise program, activity modification, weight loss attempts. X-rays of the left knee reveal severe osteoarthritis with joint space narrowing, subchondral sclerosis, subchondral cyst, osteophyte formation with deformity and subluxation. The patient was counseled as to the risks, benefits and alternatives to a total knee arthroplasty. The risks were discussed included, but not limited to anesthesia, bleeding, infection, damage to nerves and blood vessels, pain, stiffness, fracture dislocations, failure of components, blood clots, pulmonary embolism, and even . The patient's pain is severe. He favored the benefits over the risks and he did wish to proceed with surgery. PROCEDURE IN DETAIL: Written consent was obtained. The patient was identified by name, taken to the operating room and placed supine and general anesthesia was administered, as well as 3 grams of IV Ancef and 1 gram of IV vancomycin. A well-padded tourniquet was placed on the left thigh. The left lower extremity prepped and draped using isopropyl alcohol, Hibiclens solution and ChloraPrep solution. After a timeout was performed, Esmarch bandage was used to exsanguinate the left lower extremity with tourniquet inflated to 250 mmHg. A longitudinal incision over the anterior aspect of the left knee. A medial parapatellar arthrotomy was performed. The patella was everted. A patellar resection guide was used to resect 9 mm of the patella; a size 38 mm guide was placed. Three drill holes were placed and a 38 mm trial fit well. Attention was turned to the femur where a intramedullary guide was placed and the distal femoral guide was set to remove 10 mm of distal femur, 5 degrees off the anatomic valgus axis alignment An oscillating saw was used to perform the distal femoral cut. Attention was turned to the tibia. An extramedullary tibial guide was set to remove 6 mm of the lowest portion of the medial tibial plateau. The tibial guide was pinned in place. The tibial cut was performed. A 5 mm spacer block showed full extension. Attention was turned back to the femur. The AP sizing block measured a size 8. The anterior reference 3-degree external rotation guide was used to pin size [address]. Anterior, posterior chamfer cuts were performed. Size a PCL box was pinned in place and the PCL was approximated with an oscillating saw. The medial and lateral meniscus remnants were removed, as well as bone and soft tissue debris from the posterior portion of the knee. A size 8 tibial base was pinned in place. The tibia was drilled and punched. The trial components were evaluated and the final components were implanted. With the current components, the leg achieved full extension to 0 degrees and flexion to 140. No evidence of tibial liftoff. Varus valgus balance were appropriate and symmetric. The patella was noted to track centrally. The knee was thoroughly irrigated with sterile saline, pulse lavage antibiotic impregnated solution. Bovie cautery was used for hemostasis. The arthrotomy incision was closed with #1 Vicryl suture, subcuticular was closed with 2-0 Vicryl suture. Skin was closed with Dermabond. Sterile dressing was applied. He tolerated the procedure well with no intraoperative complications noted. Hill Burnett, Physician Quality Assurance Monitor Body-Certified was present for the entire procedure to include patient positioning and the procedure itself. The medical necessity of the physician interior design assistant was indicated in this case due to the complexity of the procedure. He assisted with appropriate manipulation of the leg and also retraction muscles, tendon, bone and neurovascular structures. He assisted in preparation of bone and also implantation of the prosthetic replacement. 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
[2018-05-17 12:57] VITALS: BP 126/56; PULSE 64; RESP 20; TEMP 97.6; O2SAT 96
[2018-05-17 16:14] LABS: Hemoglobin A1c 7.8 % (4.3-6.0)
--- NOTE | 2018-05-25 10:26 | MD ---
cc: Jose Rafael Maldonado MD DATE OF DISCHARGE: 05/17/2018 ADMITTING DIAGNOSIS: Severe degenerative osteoarthritis of left knee. DISCHARGE DIAGNOSIS: Severe degenerative osteoarthritis of left knee. HISTORY OF PRESENT ILLNESS: Mr. Zhu is a 72-year-old male who presented to the orthopedic clinic for evaluation by Dr. Jose Rafael Maldonado regarding progressive left knee pain. The patient states the pain has been progressive for several years and is currently inhibiting his activities of daily living and his ability to ambulate safely. He states there is a severe aching sensation in the left knee with weightbearing activities. He has no alleviating factors, although in the past he has tried medications, bracing, physical therapy, home exercises and injections without relief of symptoms. He does have x-ray evidence of severe degenerative osteoarthritis of the left knee. While in the office, the patient was counseled on his diagnosis and treatment options. Risk, benefits, indications, and of all were discussed. The patient did elect to proceed with surgical intervention to include a left total knee arthroplasty. DATE OF SURGERY: On 05/16/2018, left total knee arthroplasty. POSTOP: After surgery, the patient was admitted [facility] where he received appropriate medical management, pain control, DVT prophylaxis, as well as physical therapy. DISCHARGE: Once being discharged from the hospital, the patient has been cleared to go to a long-term facility. He is in stable condition. He may weight bear as tolerated. He has been instructed on wound care management. He has been provided prescriptions for pain control and DVT prophylaxis medication. He has also been provided a followup appointment approximately 2 weeks from his date of surgery. The patient has asked appropriate questions, which have been answered. The patient has been discharged. Dictated by PATRICIA Hernández Jose Rafael Maldonado MD [email or web address]/heber , 09:34 AM , 09:40 AM
== END 2018-05-17 14:54 | disposition home health service (06) ==
LOC: HSDC 05:44 → HSDI 06:38 → EDSTATUS 08:30 → N06 12:55
PROVIDERS: ADMIT Orthopaedic Surgery Sports Medicine; ATTEND Orthopaedic Surgery Sports Medicine

== ENCOUNTER 2018-10-24 05:38 | Inpatient (IN) ==
[2018-10-24] MEDS ORDERED: Chlorhexidine Gluconate 2% 1 Pack (2 Cloths) TOPICAL ONE (06:12)
[2018-10-24] MEDS ORDERED: Metoprolol Tartrate 25 MG Tablet PO ONE (06:12)
[2018-10-24] MEDS ORDERED: Dexamethasone Inj 20 MG/5 ML Vial IV.PUSH ONE (06:17)
[2018-10-24] MEDS ORDERED: Chlorhexidine 4% Topical 120 APPLIC/120 ML Bottle TOPICAL SCH (06:30)
[2018-10-24] MEDS ORDERED: Sodium Chlor 0.9% Inj 500 ML IV.SIG SCH (07:00)
[2018-10-24] MEDS ORDERED: ceFAZolin 2 GM Premix Inj 2 GM/50 ML PIGGYBACK IV.SIG SCH (07:00)
[2018-10-24] MEDS ORDERED: Vancomycin Inj 1,000 MG in Sodium Chlor 0.9% Inj 250 ML IV.SIG SCH (07:00)
[2018-10-24] MEDS ORDERED: Sodium Chlor 0.9% Inj 100 ML, Tranexamic Acid Inj 3,000 MG P-ARTICULR SCH ×2 (07:00)
[2018-10-24] MEDS ORDERED: SODIUM CHLOR 0.9% IV.SIG SCH (07:00)
[2018-10-24] MEDS ORDERED: Sodium Chlor 0.9% Inj 73.07 ML, Ropivacaine 0.5% PF Inj 24.63 ML, Ketorolac Inj 30 MG, ... P-ARTICULR SCH ×5 (07:00)
[2018-10-24] MEDS ORDERED: TRANEXAMIC ACID IV.SIG SCH (07:00)
== END 2018-10-24 07:10 | disposition home or self-care (01) | DRG 554 ==
LOC: HSDI 05:38
PROVIDERS: ADMIT Orthopaedic Surgery Sports Medicine; ATTEND Orthopaedic Surgery Sports Medicine
CPT/HCPCS: 99211; G0463